=== PATIENT | male | born 1970 | race American Indian/Alaskan Native ===

== ENCOUNTER 2021-10-18 17:48 | Emergency (ER) | payer SELFPAY ==
[2021-10-18] MEDS ORDERED: ONDANSETRON 4 MG ODT TAB PO ONE (20:05)
[2021-10-18] MEDS ORDERED: oxyCODONE /ACETAMINOPHEN 5-325MG TAB PO ONE (20:05)
[2021-10-18] MEDS ORDERED: KETOROLAC 10 MG TAB PO ONE (20:06)
--- NOTE | 2021-10-18 20:12 | Emergency Department Report ---
ED Eye Problem HPI - General Chief complaint: Back Pain/Injury Stated complaint: BACK PAIN Time Seen by Provider: 10/18/21 20:03 Source: patient, EMS Mode of arrival: Stretcher Limitations: No Limitations - History of Present Illness Initial comments: 50-year-old male presents with back pain. Patient reports on Sunday night he slept wrong and moved wrong and ever since then has been having pain in his mid back. Does have history of prior back pain, reports symptoms are similar and he just "needs his back popped". Pain is worse with moving, bending, extension, and improves with that he lays on his side. Pain does not radiate to the lower extremities, abdomen, groin area, no nausea or vomiting, no weakness no numbness tingling no fever chills headache dizziness or vision changes. He denies bladder or bowel dysfunction, -: days(s) Onset Description: sudden Place: home - Related Data Previous Rx's Medication Instructions Recorded Last Taken Type Cyclobenzaprine [Flexeril] 10 mg PO TID PRN #30 10/18/21 Unknown Rx Lidocaine [Salonpas] 1 each TP DAILY #7 patch 10/18/21 Unknown Rx Naproxen [Naprosyn] 375 mg PO BID PRN #30 tablet 10/18/21 Unknown Rx Allergies Allergy/AdvReac Type Severity Reaction Status Date / Time No Known Allergies Allergy Verified 10/18/21 17:56 ED Review of Systems ROS: Stated complaint: BACK PAIN Other details as noted in HPI Constitutional: no symptoms reported ENT: as per HPI Respiratory: denies: cough, shortness of breath Cardiovascular: denies: chest pain, palpitations Endocrine: denies: excessive sweating, intolerance to cold Gastrointestinal: denies: abdominal pain, nausea, vomiting, constipation Genitourinary: denies: urgency, dysuria, frequency, hematuria Musculoskeletal: back pain, myalgia. denies: joint swelling, arthralgia Skin: denies: rash Neurological: denies: headache, weakness, numbness, paresthesias, confusion Psychiatric: denies: homicidal thoughts, suicidal thoughts ED Past Medical Hx - Medications Home Medications: Home Medications Medication Instructions Recorded Confirmed Last Taken Type Cyclobenzaprine [Flexeril] 10 mg PO TID PRN #30 10/18/21 Unknown Rx Lidocaine [Salonpas] 1 each TP DAILY #7 patch 10/18/21 Unknown Rx Naproxen [Naprosyn] 375 mg PO BID PRN #30 tablet 10/18/21 Unknown Rx ED Physical Exam - General Limitations: No Limitations General appearance: alert, in no apparent distress - Head Head exam: Present: atraumatic - Eye Eye exam: Present: normal appearance - ENT ENT exam: Present: normal exam - Neck Neck exam: Present: normal inspection - Respiratory Respiratory exam: Present: normal lung sounds bilaterally. Absent: respiratory distress - Cardiovascular Cardiovascular Exam: Present: regular rate - GI/Abdominal GI/Abdominal exam: Present: soft, normal bowel sounds. Absent: distended, tenderness - Extremities Exam Extremities exam: Present: normal inspection, full ROM, normal capillary refill. Absent: tenderness, pedal edema, joint swelling - Back Exam Back exam: Present: normal inspection, full ROM, tenderness, paraspinal tenderness. Absent: CVA tenderness (R), CVA tenderness (L), muscle spasm, vertebral tenderness - Neurological Exam Neurological exam: Present: alert, oriented X3, CN II-XII intact, normal gait, reflexes normal. Absent: abnormal gait, motor sensory deficit - Psychiatric Psychiatric exam: Present: normal mood - Skin Skin exam: Present: warm, dry, intact, normal color ED Course Vital Signs 10/18/21 17:54 Pulse Rate 50 L Respiratory 18 Rate Blood Pressure 154/88 [Left] O2 Sat by Pulse 99 Oximetry ED Medical Decision Making - Medical Decision Making No red flags, back pain is similar to previous, ambulates steadily, afebrile, no paresthesia, nontoxic-appearing, DTR intact, discharged home with supportive therapy and Ortho referral. Patient remained stable nontoxic-appearing, afebrile, ambulating steadily without assistance. Gone over ED findings with patient as well as plan for follow-up. Also discussed return precautions with patient, all questions and concerns addressed. Patient is stable to be discharged follow-up outpatient. Audio voice dictation device used, hence the chart might contain some dictation errors, mispronunciations, wrong spelling and wrong verbiage. Critical care attestation.: If time is entered above; I have spent that time in minutes in the direct care of this critically ill patient, excluding procedure time. ED Disposition Clinical Impression: Musculoskeletal back pain Disposition: HOME / SELF CARE / HOMELESS Is pt being admited?: No Does the pt Need Aspirin: No Condition: Stable Instructions: Back Injury Prevention, [id number] Prescriptions: Cyclobenzaprine [Flexeril] 10 mg PO TID PRN #30 PRN Reason: Muscle Spasm Naproxen [Naprosyn] 375 mg PO BID PRN #30 tablet PRN Reason: Pain , Severe (7-10) Lidocaine [Salonpas] 1 each TP DAILY #7 patch
[2021-10-18 23:25] VITALS: BP 157/89
== END 2021-10-18 23:25 | disposition home or self-care (01) ==
LOC: ED 17:48
DX: M54.6 Pain in thoracic spine (principal); M79.18 Myalgia, other site; Z79.899 Other long term (current) drug therapy
CPT/HCPCS: 99283; J3490; Q0162